=== PATIENT | male | born 1990 | race African-American/Black ===

== ENCOUNTER 2021-08-18 22:15 | Emergency (ER) | payer SELFPAY | END 2021-08-18 23:06 | disposition home or self-care (01) | LOC: CSHERS 22:15 | DX: J02.9 Acute pharyngitis, unspecified (principal); R05.9 Cough, unspecified; R53.83 Other fatigue; R52 Pain, unspecified; Z20.822 Contact with and (suspected) exposure to COVID-19; Z87.891 Personal history of nicotine dependence | CPT/HCPCS: 99283; U0003; U0005 ==